=== PATIENT | male | born 1960 | race Caucasian/White ===

== ENCOUNTER 2018-09-04 13:00 | Outpatient (RCR) | payer BC ==
[2018-06-13 14:56] VITALS: BP 112/68
--- NOTE | 2018-06-13 17:13 | [facility] ONCOLOGY NOTE ---
DATE OF CONSULTATION: June 13, 2018 REFERRING PHYSICIAN LEE Huffman REASON FOR CONSULTATION Evaluation and management of microcytic anemia. HISTORY OF PRESENT ILLNESS Patient is a 57-year-old male generally in good health except for hyperlipidemia , who was having mild anemia and had a colonoscopy in May 2017 which was normal. Ferritin and iron were low normal last year. Celiac disease testing came back negative. His mom had a history of myeloproliferative disorder, and his father of pancreatic cancer. He had recent blood work which showed hemoglobin of 11.3, hematocrit 35.9, MCV was low at 78, RDW was high at 17.5, white cell count was 3.8, and the platelet count was normal at 211,000. PAST MEDICAL HISTORY Hyperlipidemia. PAST SURGICAL HISTORY 1. mole removal. 2. LASIK surgery. FAMILY HISTORY Mother had myeloproliferative disorder, on Jakafi. Father with pancreatic cancer. SOCIAL HISTORY Patient is single with no children. 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 He denies any abuse of tobacco, alcohol, or drugs. He quit alcohol eight years ago. CURRENT MEDICATIONS 1. Fish oil. 2. Multivitamins. ALLERGIES No known drug allergies. REVIEW OF SYSTEMS CONSTITUTIONAL: No appetite or weight change. No fever, chills, or sweating. No recent infection. HEENT: Ears: No tinnitus or hearing problem. Nose: No nasal discharge or epistaxis. Throat: No sore throat or mouth ulcers. Eyes: No diplopia or visual changes. RESPIRATORY: No shortness of breath. No cough, expectoration, or hemoptysis. CARDIOVASCULAR: No chest pain, orthopnea, or paroxysmal nocturnal dyspnea (PND) . No edema. No palpitations. GASTROINTESTINAL: Patient has rectal bleeding occasionally, and he had a colonoscopy in May 2017 which came back normal. GENITOURINARY: No hematuria or dysuria. MUSCULOSKELETAL: No pain in the muscles, joints, or bones. NEUROLOGICAL: No tingling or numbness in the hands or feet. No headaches or convulsions. HEMATOLOGIC/LYMPHATIC: No bleeding or easy bruising. No weakness or fatigue. No enlarged lymph nodes. SKIN: No skin rash or lumps. PSYCHIATRIC: No anxiety or depression. PHYSICAL EXAMINATION GENERAL: Looks stable. Well developed, well nourished, and in no acute distress. VITAL SIGNS: Blood pressure 112/68, pulse 59 per minute, respirations 16 per minute, temperature 96.7, pulse ox 95% on room air. HEENT: Head: Atraumatic. No sinus tenderness to palpation. Eyes: No icterus or conjunctivitis. Mouth and throat: No oral thrush or mucositis. NECK: Supple. No cervical or supraclavicular lymphadenopathy. LUNGS: Clear to auscultation and percussion bilaterally. HEART: Regular rate and rhythm. No gallops, murmurs, clicks, or rubs. ABDOMEN: Soft and lax. No tenderness. No hepatosplenomegaly. No masses. EXTREMITIES: No cyanosis, clubbing, or edema. LYMPHATICS: No peripheral lymphadenopathy. NEUROLOGICAL: Conscious, alert, and oriented times three. No focal motor or sensory deficits. PSYCHIATRIC: Mood and affect appear normal. SKIN: No skin rash, bruise, or purpuric eruption. ASSESSMENT Microcytic anemia. Could be due to iron deficiency anemia given that the patient has occasional episodes of rectal bleeding. He had a colonoscopy done May 2017 which came back negative. He was tested for celiac disease, and also the testing came back negative. I am planning to do a general workup for the anemia, so I am planning to repeat his CBC, reticulocyte count, iron studies with ferritin, B12, folate, methylmalonic acid assay, and serum protein immunoelectrophoresis. I will see the patient after that, and I will decide about further management. If the patient would prove to have iron deficiency anemia, I am planning to refer him to a scrubbing machine operator for gastrointestinal workup. I explained that to the patient, and he is agreeable with the plan of management. PLAN 1. CBC with retic count. 2. Iron studies with ferritin. 3. Vitamin B12 and folate acid levels. 4. Methylmalonic acid assay. 5. Serum protein immunoelectrophoresis. 6. Patient to return after the above for further evaluation and management. 7. Patient to contact us for any new concerns or complaints. YESSICA
[2018-06-18 16:18] VITALS: BP 114/61
[2018-06-18 16:27] LABS: PLATELET COUNT, AUTOMATED 193 K/uL (150-450)
[2018-06-27 16:39] VITALS: BP 122/68
--- NOTE | 2018-06-27 18:36 | ONCOLOGY FOLLOW UP NOTE ---
EVENT DATE: June 27, 2018 DIAGNOSIS Iron deficiency anemia. CHIEF COMPLAINT Patient is here today for followup of his iron deficiency anemia. HEMATOLOGY HISTORY Patient is a 58-year-old male generally in good health except for hyperlipidemia, who was having mild anemia and had a colonoscopy in May 2017 which was normal. Ferritin and iron were low normal last year. Celiac disease testing came back negative. His mom had a history of myeloproliferative disorder, and his father of pancreatic cancer. He had recent blood work which showed hemoglobin of 11.3, hematocrit 35.9, MCV was low at 78, RDW was high at 17.5, white cell count was 3.8, and the platelet count was normal at 211,000. CBC showed white count 4.5, hemoglobin 10.6, hematocrit 31.8, platelets 193,000, MCV 75.5. Serum iron 27, TIBC 429, iron saturation 6.3%, serum ferritin was low at 5. Vitamin B12 was 242. Methylmalonic acid was 0.12. Serum folate was more than 22. Serum protein immunoelectrophoresis was normal. HISTORY OF PRESENT ILLNESS Patient is here today for followup of his iron deficiency anemia. He is complaining of some epistaxis sometimes and fatigue. He denies any recent rectal bleeding, but he has before. PAST MEDICAL HISTORY Hyperlipidemia. PAST SURGICAL HISTORY 1. mole removal. 2. LASIK surgery. FAMILY HISTORY Mother had myeloproliferative disorder, on Jakafi. Father with pancreatic cancer. SOCIAL HISTORY Patient is single with no children. 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 He denies any abuse of tobacco, alcohol, or drugs. He quit alcohol eight years ago. CURRENT MEDICATIONS 1. Fish oil. 2. Multivitamins. ALLERGIES No known drug allergies. REVIEW OF SYSTEMS CONSTITUTIONAL: No appetite or weight change. No fever, chills, or sweating. No recent infection. HEENT: Ears: No tinnitus or hearing problem. Nose: He has epistaxis. Throat: No sore throat or mouth ulcers. Eyes: No diplopia or visual changes. RESPIRATORY: No shortness of breath. No cough, expectoration, or hemoptysis. CARDIOVASCULAR: No chest pain, orthopnea, or paroxysmal nocturnal dyspnea (PND). No edema. No palpitations. GASTROINTESTINAL: Patient has rectal bleeding occasionally, and he had a colonoscopy in May 2017 which came back normal. GENITOURINARY: No hematuria or dysuria. MUSCULOSKELETAL: No pain in the muscles, joints, or bones. NEUROLOGICAL: No tingling or numbness in the hands or feet. No headaches or convulsions. HEMATOLOGIC/LYMPHATIC: No bleeding or easy bruising. He has weakness and fatigue. No enlarged lymph nodes. SKIN: No skin rash or lumps. PSYCHIATRIC: No anxiety or depression. PHYSICAL EXAMINATION GENERAL: Looks stable. Well developed, well nourished, and in no acute distress. VITAL SIGNS: Blood pressure 122/68, pulse 60 per minute, respirations 16 per minute, temperature 97.9, pulse ox 94% on room air. HEENT: Head: Atraumatic. No sinus tenderness to palpation. Eyes: No icterus or conjunctivitis. Mouth and throat: No oral thrush or mucositis. NECK: Supple. No cervical or supraclavicular lymphadenopathy. LUNGS: Clear to auscultation and percussion bilaterally. HEART: Regular rate and rhythm. No gallops, murmurs, clicks, or rubs. ABDOMEN: Soft and lax. No tenderness. No hepatosplenomegaly. No masses. EXTREMITIES: No cyanosis, clubbing, or edema. LYMPHATICS: No peripheral lymphadenopathy. NEUROLOGICAL: Conscious, alert, and oriented times three. No focal motor or sensory deficits. PSYCHIATRIC: Mood and affect appear normal. SKIN: No skin rash, bruise, or purpuric eruption. DIAGNOSTIC DATA CBC showed white count 4.5, hemoglobin 10.6, hematocrit 31.8, platelets 193,000, MCV 75.5. Serum iron 27, TIBC 429, iron saturation 6.3%, ferritin is 5. Methylmalonic acid is 0.12. B12 is 242. Folate more than 22. Serum protein immunoelectrophoresis is normal. ASSESSMENT Microcytic anemia due to iron deficiency anemia as per his iron studies. His serum ferritin is 5, TIBC 429, iron saturation 6.3%, and serum iron is 27. His current hemoglobin is 10.6, hematocrit 31.8, and the MCV is 75.7. Platelets and white count were normal. B12, folate, methylmalonic acid, and serum protein immunoelectrophoresis all came back within the normal range. As the patient has iron deficiency anemia, I am planning to start treatment with ferrous sulfate 325 mg three times daily with meals. I am planning to refer the patient to Dr. Srinivasan for gastrointestinal workup. I will see him again in two months with CBC and iron studies with ferritin. I will consider intravenous iron supplement if he will not respond to oral iron, or he is intolerant to the oral iron supplement. I explained that to the patient. He is agreeable with the plan of management. PLAN 1. Ferrous sulfate 325 mg t.i.d. with meals. 2. Referral to Dr. Srinivasan for GI workup. 3. Patient to return in two months with CBC and iron studies with ferritin. 4. Patient to contact us for any new concerns or complaints. YESSICA
[2018-08-26 15:40] VITALS: BP 112/62
[2018-08-26 16:10] LABS: PLATELET COUNT, AUTOMATED 170 K/uL (150-450)
[~2018-09-04 13:00] MED LIST: AZIT1PAC21 PO; AZIT500T47 PO; D-ME118S34 PO; ESC10 PO; FAM20 PO; IBUP-1618 PO; IBUPROFEN; MULT-859 PO; MYLL PO; NALT50TA PO; THIA100T55 PO
[2018-09-04 13:09] VITALS: BP 111/67
--- NOTE | 2018-09-05 15:29 | ONCOLOGY FOLLOW UP NOTE ---
EVENT DATE: September 04, 2018 DIAGNOSIS Iron deficiency anemia. CHIEF COMPLAINT Patient is here today for followup of his iron deficiency anemia. HEMATOLOGY HISTORY Patient is a 58-year-old male generally in good health except for hyperlipidemia, who was having mild anemia and had a colonoscopy in May 2017 which was normal. Ferritin and iron were low normal last year. Celiac disease testing came back negative. His mom had a history of myeloproliferative disorder, and his father of pancreatic cancer. He had recent blood work which showed hemoglobin of 11.3, hematocrit 35.9, MCV was low at 78, RDW was high at 17.5, white cell count was 3.8, and the platelet count was normal at 211,000. CBC showed white count 4.5, hemoglobin 10.6, hematocrit 31.8, platelets 193,000, MCV 75.5. Serum iron 27, TIBC 429, iron saturation 6.3%, serum ferritin was low at 5. Vitamin B12 was 242. Methylmalonic acid was 0.12. Serum folate was more than 22. Serum protein immunoelectrophoresis was normal. HISTORY OF PRESENT ILLNESS Patient is here today for followup of his iron deficiency anemia. He is really doing very well currently, and he is totally asymptomatic this visit. PAST MEDICAL HISTORY Hyperlipidemia. PAST SURGICAL HISTORY 1. mole removal. 2. LASIK surgery. FAMILY HISTORY Mother had myeloproliferative disorder, on Jakafi. Father with pancreatic cancer. SOCIAL HISTORY Patient is single with no children. 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 He denies any abuse of tobacco, alcohol, or drugs. He quit alcohol eight years ago. CURRENT MEDICATIONS 1. Fish oil. 2. Multivitamins. 3. Ferrous sulfate 325 mg three times daily with meals. ALLERGIES No known drug allergies. REVIEW OF SYSTEMS CONSTITUTIONAL: No appetite or weight change. No fever, chills, or sweating. No recent infection. HEENT: Ears: No tinnitus or hearing problem. Nose: He has epistaxis. Throat: No sore throat or mouth ulcers. Eyes: No diplopia or visual changes. RESPIRATORY: No shortness of breath. No cough, expectoration, or hemoptysis. CARDIOVASCULAR: No chest pain, orthopnea, or paroxysmal nocturnal dyspnea (PND). No edema. No palpitations. GASTROINTESTINAL: Patient has rectal bleeding occasionally, and he had a colonoscopy in May 2017 which came back normal. GENITOURINARY: No hematuria or dysuria. MUSCULOSKELETAL: No pain in the muscles, joints, or bones. NEUROLOGICAL: No tingling or numbness in the hands or feet. No headaches or convulsions. HEMATOLOGIC/LYMPHATIC: No bleeding or easy bruising. He has weakness and fatigue. No enlarged lymph nodes. SKIN: No skin rash or lumps. PSYCHIATRIC: No anxiety or depression. PHYSICAL EXAMINATION GENERAL: Looks stable. Well developed, well nourished, and in no acute distress. VITAL SIGNS: Blood pressure 111/67, pulse 62 per minute, respirations 16 per minute, temperature 97, pulse ox 93% on room air. HEENT: Head: Atraumatic. No sinus tenderness to palpation. Eyes: No icterus or conjunctivitis. Mouth and throat: No oral thrush or mucositis. NECK: Supple. No cervical or supraclavicular lymphadenopathy. LUNGS: Clear to auscultation and percussion bilaterally. HEART: Regular rate and rhythm. No gallops, murmurs, clicks, or rubs. ABDOMEN: Soft and lax. No tenderness. No hepatosplenomegaly. No masses. EXTREMITIES: No cyanosis, clubbing, or edema. LYMPHATICS: No peripheral lymphadenopathy. NEUROLOGICAL: Conscious, alert, and oriented times three. No focal motor or sensory deficits. PSYCHIATRIC: Mood and affect appear normal. SKIN: No skin rash, bruise, or purpuric eruption. DIAGNOSTIC DATA CBC showed white count 4000, hemoglobin 13.8, hematocrit 40.3, platelets 170,000. Serum iron 52, TIBC 326, iron saturation 16%, ferritin 25. ASSESSMENT Iron deficiency anemia. His initial serum ferritin was 5, TIBC 429, iron saturation 6.3%, and serum iron was 27. His initial hemoglobin was 10.6 with MCV 75.7. Patient started treatment with supplementation with ferrous sulfate 325 mg three times daily. His current hemoglobin is 13.8, up from 10.6, and his serum ferritin is 25, up from 5. I am planning to continue iron supplementation for another three months to replenish his stores, and I will see him in three months with CBC and iron studies with ferritin at that time. I explained that to the patient, and the patient is agreeable with the plan of management. He is happy with the improvement of his iron and hemoglobin. PLAN 1. Continue ferrous sulfate 325 mg t.i.d. with meals. 2. Patient to return in three months with CBC and iron studies with ferritin. 3. Patient to contact us for any new concerns or complaints. BEVERLYD
== END 2018-09-10 ==
LOC: ONC 13:00
PROVIDERS: ATTEND Internal Medicine Hematology
DX: D50.9 Iron deficiency anemia, unspecified (principal); E78.5 Hyperlipidemia, unspecified; R53.1 Weakness; R53.83 Other fatigue
CPT/HCPCS: 36415; 82607; 82728; 82746; 83540; 83550; 83921; 84165; 85025; 85027; 85045; 86334; 99202; 99212

== ENCOUNTER 2018-12-05 15:30 | Outpatient (RCR) | payer BC ==
[2018-11-25 15:52] VITALS: BP 120/72
[2018-11-25 15:57] LABS: PLATELET COUNT, AUTOMATED 193 K/uL (150-450)
[~2018-12-05 15:30] MED LIST changes: +ESCI20TA38 PO
[2018-12-05] MEDS ORDERED: ZOLP-1 PO (15:48)
[2018-12-05 15:49] VITALS: BP 105/70
--- NOTE | 2018-12-05 21:17 | [facility] ONCOLOGY NOTE ---
EVENT DATE: December 05, 2018 DIAGNOSIS Iron deficiency anemia. CHIEF COMPLAINT Patient is here today for followup of his iron deficiency anemia. HEMATOLOGY HISTORY Patient is a 58-year-old male generally in good health except for hyperlipidemia, who was having mild anemia and had a colonoscopy in May 2017 which was normal. Ferritin and iron were low normal last year. Celiac disease testing came back negative. His mom had a history of myeloproliferative disorder, and his father of pancreatic cancer. He had recent blood work which showed hemoglobin of 11.3, hematocrit 35.9, MCV was low at 78, RDW was high at 17.5, white cell count was 3.8, and the platelet count was normal at 211,000. CBC showed white count 4.5, hemoglobin 10.6, hematocrit 31.8, platelets 193,000, MCV 75.5. Serum iron 27, TIBC 429, iron saturation 6.3%, serum ferritin was low at 5. Vitamin B12 was 242. Methylmalonic acid was 0.12. Serum folate was more than 22. Serum protein immunoelectrophoresis was normal. HISTORY OF PRESENT ILLNESS Patient is here today for followup of his iron deficiency anemia. He is doing fine currently and denies any symptoms. PAST MEDICAL HISTORY Hyperlipidemia. PAST SURGICAL HISTORY 1. mole removal. 2. LASIK surgery. FAMILY HISTORY Mother had myeloproliferative disorder, on Jakafi. Father with pancreatic cancer. SOCIAL HISTORY Patient is single with no children. 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 He denies any abuse of tobacco, alcohol, or drugs. He quit alcohol eight years ago. CURRENT MEDICATIONS 1. Fish oil. 2. Multivitamins. ALLERGIES No known drug allergies. REVIEW OF SYSTEMS CONSTITUTIONAL: No appetite or weight change. No fever, chills, or sweating. No recent infection. HEENT: Ears: No tinnitus or hearing problem. Nose: No nasal discharge or epistaxis. Throat: No sore throat or mouth ulcers. Eyes: No diplopia or visual changes. RESPIRATORY: No shortness of breath. No cough, expectoration, or hemoptysis. CARDIOVASCULAR: No chest pain, orthopnea, or paroxysmal nocturnal dyspnea (PND). No edema. No palpitations. GASTROINTESTINAL: No nausea or vomiting. No diarrhea or constipation. No change in bowel movements. No heartburn or swallowing difficulties. No abdominal pain. No jaundice. No hematemesis, melena, or rectal bleeding. GENITOURINARY: No hematuria or dysuria. MUSCULOSKELETAL: No pain in the muscles, joints, or bones. NEUROLOGICAL: No tingling or numbness in the hands or feet. No headaches or convulsions. HEMATOLOGIC/LYMPHATIC: No bleeding or easy bruising. No weakness or fatigue. No enlarged lymph nodes. SKIN: No skin rash or lumps. PSYCHIATRIC: No anxiety or depression. PHYSICAL EXAMINATION GENERAL: Looks stable. Well developed, well nourished, and in no acute distress. VITAL SIGNS: Blood pressure 101/53, pulse 55 per minute, respirations 16 per minute, temperature 96.8, pulse ox 94% on room air. HEENT: Head: Atraumatic. No sinus tenderness to palpation. Eyes: No icterus or conjunctivitis. Mouth and throat: No oral thrush or mucositis. NECK: Supple. No cervical or supraclavicular lymphadenopathy. LUNGS: Clear to auscultation and percussion bilaterally. HEART: Regular rate and rhythm. No gallops, murmurs, clicks, or rubs. ABDOMEN: Soft and lax. No tenderness. No hepatosplenomegaly. No masses. EXTREMITIES: No cyanosis, clubbing, or edema. LYMPHATICS: No peripheral lymphadenopathy. NEUROLOGICAL: Conscious, alert, and oriented times three. No focal motor or sensory deficits. PSYCHIATRIC: Mood and affect appear normal. SKIN: No skin rash, bruise, or purpuric eruption. DIAGNOSTIC DATA CBC showed white count 5.4, hemoglobin 13.9, hematocrit 39.5, and platelet count 193,000. Serum iron 83, TIBC 296, iron saturation 28%, and ferritin 28. ASSESSMENT Microcytic anemia due to iron deficiency anemia. His initial ferritin was 5, TIBC was 429, iron saturation 6.3%, and serum iron was 27. Patient is currently on iron supplement since the May. His current iron studies showed the serum iron 83, TIBC 296, iron saturation 28%, and ferritin 28. I advised the patient to stop iron after he would finish his current pills. I would like to see him in three months from now with CBC and iron studies with ferritin. If the patient develops iron deficiency again, then I will refer him to a automotive professional for gastrointestinal workup again. I explained that to the patient, and he is agreeable with the plan of management. PLAN 1. Ferrous sulfate 325 mg t.i.d. with meals until he would finish his current supply, and then he will stop ferrous sulfate. 2. Patient to return in three months with CBC and iron studies with ferritin. 3. Patient to contact us for any new concern or complaints. YESSICA
[2019-02-24] MEDS ORDERED: HYDR-385 PO (15:49)
[2019-02-24] MEDS ORDERED: AMOX500T10 PO (15:49)
[2019-02-24] MEDS ORDERED: ALPR-429 PO (15:49)
== END 2019-02-22 ==
LOC: ONC 15:30
PROVIDERS: ATTEND Internal Medicine Hematology
DX: D50.9 Iron deficiency anemia, unspecified (principal); E78.5 Hyperlipidemia, unspecified; R53.1 Weakness; R53.83 Other fatigue
CPT/HCPCS: 36415; 82728; 83540; 83550; 85025; 99212

== ENCOUNTER 2019-02-27 15:30 | Outpatient (RCR) | payer BC ==
[2019-02-24 15:34] VITALS: BP 119/79
[2019-02-24 15:51] LABS: PLATELET COUNT, AUTOMATED 224 K/uL (150-450)
[~2019-02-27 15:30] MED LIST changes: +ALPR-429 PO; +AMOX500T10 PO; +HYDR-385 PO; +ZOLP-1 PO
[2019-02-27 15:38] VITALS: BP 119/69
--- NOTE | 2019-02-28 07:31 | [facility] ONCOLOGY NOTE ---
EVENT DATE: February 27, 2019 DIAGNOSIS Iron deficiency anemia. CHIEF COMPLAINT Patient is here today for followup of his iron deficiency anemia. HEMATOLOGY HISTORY Patient is a 58-year-old male generally in good health except for hyperlipidemia, who was having mild anemia and had a colonoscopy in May 2017 which was normal. Ferritin and iron were low normal last year. Celiac disease testing came back negative. His mom had a history of myeloproliferative disorder, and his father of pancreatic cancer. He had recent blood work which showed hemoglobin of 11.3, hematocrit 35.9, MCV was low at 78, RDW was high at 17.5, white cell count was 3.8, and the platelet count was normal at 211,000. CBC showed white count 4.5, hemoglobin 10.6, hematocrit 31.8, platelets 193,000, MCV 75.5. Serum iron 27, TIBC 429, iron saturation 6.3%, serum ferritin was low at 5. Vitamin B12 was 242. Methylmalonic acid was 0.12. Serum folate was more than 22. Serum protein immunoelectrophoresis was normal. HISTORY OF PRESENT ILLNESS Patient is here today for followup of his iron deficiency anemia. He is doing fine currently and he is totally asymptomatic. He finished his iron supplement so he did not take any iron for the last 2 to 3 months. PAST MEDICAL HISTORY Hyperlipidemia. PAST SURGICAL HISTORY 1. mole removal. 2. LASIK surgery. FAMILY HISTORY Mother had myeloproliferative disorder, on Jakafi. Father with pancreatic cancer. SOCIAL HISTORY Patient is single with no children. 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 He denies any abuse of tobacco, alcohol, or drugs. He quit alcohol eight years ago. CURRENT MEDICATIONS 1. Fish oil. 2. Multivitamins. ALLERGIES No known drug allergies. REVIEW OF SYSTEMS CONSTITUTIONAL: No appetite or weight change. No fever, chills, or sweating. No recent infection. HEENT: Ears: No tinnitus or hearing problem. Nose: No nasal discharge or epistaxis. Throat: No sore throat or mouth ulcers. Eyes: No diplopia or visual changes. RESPIRATORY: No shortness of breath. No cough, expectoration, or hemoptysis. CARDIOVASCULAR: No chest pain, orthopnea, or paroxysmal nocturnal dyspnea (PND). No edema. No palpitations. GASTROINTESTINAL: No nausea or vomiting. No diarrhea or constipation. No change in bowel movements. No heartburn or swallowing difficulties. No abdominal pain. No jaundice. No hematemesis, melena, or rectal bleeding. GENITOURINARY: No hematuria or dysuria. MUSCULOSKELETAL: No pain in the muscles, joints, or bones. NEUROLOGICAL: No tingling or numbness in the hands or feet. No headaches or convulsions. HEMATOLOGIC/LYMPHATIC: No bleeding or easy bruising. No weakness or fatigue. No enlarged lymph nodes. SKIN: No skin rash or lumps. PSYCHIATRIC: No anxiety or depression. PHYSICAL EXAMINATION GENERAL: Looks stable. Well developed, well nourished, and in no acute distress. VITAL SIGNS: Blood pressure 119/69, pulse 59 per minute, respirations 16 per minute, temperature 97, pulse ox 95% on room air. HEENT: Head: Atraumatic. No sinus tenderness to palpation. Eyes: No icterus or conjunctivitis. Mouth and throat: No oral thrush or mucositis. NECK: Supple. No cervical or supraclavicular lymphadenopathy. LUNGS: Clear to auscultation and percussion bilaterally. HEART: Regular rate and rhythm. No gallops, murmurs, clicks, or rubs. ABDOMEN: Soft and lax. No tenderness. No hepatosplenomegaly. No masses. EXTREMITIES: No cyanosis, clubbing, or edema. LYMPHATICS: No peripheral lymphadenopathy. NEUROLOGICAL: Conscious, alert, and oriented times three. No focal motor or sensory deficits. PSYCHIATRIC: Mood and affect appear normal. SKIN: No skin rash, bruise, or purpuric eruption. DIAGNOSTIC DATA CBC showed white count 5.9, hemoglobin 14.3, hematocrit 41.4, and platelet count 224,000. Serum iron 63, TIBC 305, iron saturation 20.7%, and ferritin 32, which is up from 28. ASSESSMENT Iron deficiency anemia. Initial ferritin level was 5. TIBC was 429. Saturation of the iron was 6.3% and serum iron was 27. Patient received six months of iron supplementation with normalization of his iron studies. For the last two to three months he has not received any iron supplement and his ferritin actually increased from 28 to 32 and other iron studies were within the normal range and hemoglobin is good at 14.3. I am planning to continue followup. I will see him again in six months with CBC, iron studies with ferritin and the patient was advised to report to us if he becomes fatigued again or not in the future. PLAN 1. Continue followup. 2. Patient to return in six months with CBC and iron studies with ferritin. 3. Patient to contact us for any new concern or complaints. YESSICA
== END 2019-03-30 14:45 | disposition home or self-care (01) ==
LOC: ONC 15:30
PROVIDERS: ATTEND Internal Medicine Hematology
DX: D50.9 Iron deficiency anemia, unspecified (principal); E78.5 Hyperlipidemia, unspecified
CPT/HCPCS: 36415; 82728; 83540; 83550; 85025; 99212

== ENCOUNTER 2019-04-16 21:48 | Emergency (ER) | payer BC ==
--- NOTE | 2019-04-16 21:59 | ER Report ---
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 His only significant history was iron deficiency anemia and hyperlipidemia. Patient now notes 1 month of severe fatigue, dyspnea on exertion. His renal pulse ox is 84%. He was seen by primary care today and advised to come to the hospital for chest x-ray. Patient notes no infectious symptoms such as rhinitis, sore throat or coughing. He denies leg swelling or calf pain. REVIEW OF SYSTEMS: Respiratory: As above Cardiovascular: No chest pain, no palpitations. Gastrointestinal: No vomiting, no abdominal pain. Musculoskeletal: No back pain. Allergies: Coded Allergies: No Known Drug Allergies (Verified , 04/16/19) Home Meds Active Scripts Albuterol Sulfate (PROVENTIL HFA) 6.7 Gm Inh, 2 PUFF INH Q4-6H PRN for difficulty breathing, #1 INH Prov:ADRIAN CRUZ DO 04/16/19 Prednisone (PREDNISONE) 20 Mg Tablet, 20 MG PO QDAY for reduce lung inflammation, #9 2 by mouth daily for 3 days then 1 by mouth daily for 3 days Prov:ADRIAN CRUZ DO 04/16/19 Reported Medications Duloxetine HCl (Duloxetine HCl) 60 Mg Capsule. 04/16/19 Discontinued Reported Medications Hydrocodone Bit/Acetaminophen (HYDROCODON-ACETAMINOPHEN 5-325) 1 Each Tablet, 1 EACH PO Q6H, TAB 02/24/19 Alprazolam (XANAX) 0.5 Mg Tablet, 0.5 TAB PO QD PRN, TAB 02/24/19 Zolpidem Tartrate (AMBIEN) 5 Mg Tablet, 1 TAB PO QHS, TAB 12/05/18 Escitalopram Oxalate (LEXAPRO) 20 Mg Tablet, 10 MG PO QDAY, TAB 11/25/18 Past Medical/Surgical History PAST MEDICAL HISTORY Hyperlipidemia. PAST SURGICAL HISTORY 1. mole removal. 2. LASIK surgery. FAMILY HISTORY Mother had myeloproliferative disorder, on Jakafi. Father with pancreatic cancer. SOCIAL HISTORY Patient is single with no children. 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 He denies any abuse of tobacco, alcohol, or drugs. He quit alcohol eight years ago. Reviewed Nurses Notes: Yes Old Medical Records Reviewed: Yes Hx Smoking: No Hx Alcohol Use: Yes Constitutional Vital Sign - Last 24 Hours 04/16/19 04/16/19 04/16/19 04/16/19 21:48 21:57 21:58 22:00 Temp 96.6 Pulse ??? 92 Resp 16 B/P (MAP) 137/82 (100) 137/82 144/86 (105) Pulse Ox 84 O2 Delivery Room Air 04/16/19 04/16/19 04/16/19 04/16/19 22:06 22:18 22:30 23:05 Pulse 86 B/P (MAP) 128/79 (95) 95/73 (80) Pulse Ox 94 O2 Flow Rate 2.0 04/16/19 04/16/19 04/16/19 04/16/19 23:18 23:30 23:35 23:40 Pulse 65 73 78 B/P (MAP) 123/78 (93) Pulse Ox 95 95 94 04/17/19 04/17/19 04/17/19 04/17/19 00:00 00:10 00:30 00:40 Pulse 81 68 B/P (MAP) 137/70 (92) 127/78 (94) Pulse Ox 94 95 Physical Exam General Appearance: The patient is alert, has no immediate need for airway protection and no current signs of toxicity. Slightly pale appearing, vital signs stable, pulse ox 84% on room air, no air hunger HEENT: Pupils equal and round no injection. TMs normal, oropharynx without redness or exudate Respiratory: Chest is non tender, lungs are clear to auscultation. No wheezing or rails Cardiac: regular rate and rhythm Gastrointestinal: Abdomen is soft and non tender, no masses, bowel sounds normal. Musculoskeletal: Neck: Neck is supple and non tender. Extremities have full range of motion and are non tender. No edema, no calf tenderness Skin: No rashes or lesions. DIFFERENTIAL DIAGNOSIS: After history and physical exam differential diagnosis was considered for shortness of breath including but not limited to pulmonary infectious process, COPD, asthma, pulmonary embolus and congestive heart f ailure. Medical Decision Making Data Points Result Diagram: 04/16/19221004/16/192210 Laboratory Hematology Test 04/16/19 22:11 Red Blood Count 4.06 M/uL (4.00-5.60) Mean Corpuscular Volume 96.2 fL (80.0-96.0) Mean Corpuscular Hemoglobin 33.6 pg (26.0-33.0) Mean Corpuscular Hemoglobin Concent 34.9 g/dL (32.0-36.0) Red Cell Distribution Width 14.0 % (11.5-14.5) Mean Platelet Volume 5.9 fL (7.2-11.1) Neutrophils (%) (Auto) 60.4 % (39.4-72.5) Lymphocytes (%) (Auto) 27.7 % (17.6-49.6) Monocytes (%) (Auto) 9.3 % (4.1-12.4) Eosinophils (%) (Auto) 1.8 % (0.4-6.7) Basophils (%) (Auto) 0.8 % (0.3-1.4) Nucleated RBC Relative Count (auto) 0.1 /100WBC Neutrophils # (Auto) 2.2 K/uL (2.0-7.4) Lymphocytes # (Auto) 1.0 K/uL (1.3-3.6) Monocytes # (Auto) 0.3 K/uL (0.3-1.0) Eosinophils # (Auto) 0.1 K/uL (0.0-0.5) Basophils # (Auto) 0.0 K/uL (0.0-0.1) Nucleated RBC Absolute Count (auto) 0.00 K/uL D-Dimer Quantitative (PE/DVT) 1.32 ug/ml (0-0.50) Sodium Level 142 mmol/L (137-145) Potassium Level 3.4 mmol/L (3.5-5.0) Chloride Level 104 mmol/L (98-107) Carbon Dioxide Level 24 mmol/L (22-30) Blood Urea Nitrogen 16 mg/dl (9-21) Creatinine 0.60 mg/dl (0.66-1.25) Glomerular Filtration Rate Calc > 60.0 Random Glucose 219 mg/dl (75-110) Calcium Level 8.2 mg/dl (8.4-10.2) Total Bilirubin 1.0 mg/dl (0.2-1.3) Aspartate Amino Transf (AST/SGOT) 69 U/L (0-35) Alanine Aminotransferase (ALT/SGPT) 53 U/L (0-56) Alkaline Phosphatase 66 U/L (0-126) Troponin I < 0.012 ng/ml B-Type Natriuretic Peptide 7 pg/ml (0-100) Total Protein 7.2 g/dl (6.3-8.2) Albumin 3.9 g/dl (3.5-5.0) Chemistry Test 04/16/19 22:11 White Blood Count 3.6 k/uL (4.5-11.0) Red Blood Count 4.06 M/uL (4.00-5.60) Hemoglobin 13.6 g/dL (14.0-18.0) Hematocrit 39.1 % (42.0-52.0) Mean Corpuscular Volume 96.2 fL (80.0-96.0) Mean Corpuscular Hemoglobin 33.6 pg (26.0-33.0) Mean Corpuscular Hemoglobin Concent 34.9 g/dL (32.0-36.0) Red Cell Distribution Width 14.0 % (11.5-14.5) Platelet Count 180 K/uL (150-450) Mean Platelet Volume 5.9 fL (7.2-11.1) Neutrophils (%) (Auto) 60.4 % (39.4-72.5) Lymphocytes (%) (Auto) 27.7 % (17.6-49.6) Monocytes (%) (Auto) 9.3 % (4.1-12.4) Eosinophils (%) (Auto) 1.8 % (0.4-6.7) Basophils (%) (Auto) 0.8 % (0.3-1.4) Nucleated RBC Relative Count (auto) 0.1 /100WBC Neutrophils # (Auto) 2.2 K/uL (2.0-7.4) Lymphocytes # (Auto) 1.0 K/uL (1.3-3.6) Monocytes # (Auto) 0.3 K/uL (0.3-1.0) Eosinophils # (Auto) 0.1 K/uL (0.0-0.5) Basophils # (Auto) 0.0 K/uL (0.0-0.1) Nucleated RBC Absolute Count (auto) 0.00 K/uL D-Dimer Quantitative (PE/DVT) 1.32 ug/ml (0-0.50) Glomerular Filtration Rate Calc > 60.0 Calcium Level 8.2 mg/dl (8.4-10.2) Total Bilirubin 1.0 mg/dl (0.2-1.3) Aspartate Amino Transf (AST/SGOT) 69 U/L (0-35) Alanine Aminotransferase (ALT/SGPT) 53 U/L (0-56) Alkaline Phosphatase 66 U/L (0-126) Troponin I < 0.012 ng/ml B-Type Natriuretic Peptide 7 pg/ml (0-100) Total Protein 7.2 g/dl (6.3-8.2) Albumin 3.9 g/dl (3.5-5.0) Coagulation Test 04/16/19 22:11 D-Dimer Quantitative (PE/DVT) 1.32 ug/ml EKG/Imaging Imaging Results: CT scan of the CTA pulmonary angiogram was obtained. The results of the study are CT CTA CHEST W & W/O CON HISTORY: Hypoxia 84% RA elevted d-dimer TECHNIQUE: CTA chest with intravenous contrast attention to pulmonary arteries. Sagittal, coronal and slab 3D MIP coronal reconstructed images were also created for further evaluation and interpretation. One of the following dose optimization techniques was utilized in the performance of this exam: Automated exposure control; adjustment of the mA and/or kV according to the patient's size; or use of an iterative reconstruction technique. Specific details can be referenced in the facility's radiology CT exam operational policy. CONTRAST: 75 mL Isovue-370. COMPARISON: None. FINDINGS: Heart/vessels: Satisfactory opacification of the pulmonary arteries without visualized pulmonary embolus. Prominence of the main pulmonary artery measuring up to 3.8 cm which is nonspecific however can be seen in setting of pulmonary arterial hypertension. Minimal calcification within the LAD. Otherwise negative. Mediastinum: Negative. Lymph nodes: Negative. Lungs/pleura: Background of mild centrilobular emphysematous change. Focal cluster of nodular subsolid opacities in the right upper lobe, the largest of which measures approximately 11 x 6 mm (image 128 of series 7). Mild heterogeneous groundglass opacities within the lung bases which are most compatible with atelectasis. Solid 2 mm nodule within the lingula (image 170 of series 7). Visualized upper abdomen: Suggestion of hepatic steatosis. Bones/soft tissues: Negative. IMPRESSION: 1. Negative for pulmonary embolus. 2. Focal cluster of subsolid nodularity within the right upper lobe favored infectious/inflammatory in etiology. 3 month follow-up CT chest is recommended to ensure stability. 3. Incidental note of a 2 mm solid nodule within the lingula. Recommend attention on follow-up. 4. Additional incidental/chronic findings, as above. The study was read by the radiologist. I viewed the images myself on the PACS system. ED Course/Re-evaluation Clinical Indication for ER IV: IV Access ED Course Patient was admitted to an examination room. H&P was done. The differential diagnoses was considered. Patient with gross hypoxemia, 84% on room air. Patient states she's been short of breath for over one month. He's not been able to exercise. He reports no recent infectious symptoms. Patient was sent in by primary care for evaluation with a chest x-ray. Patient's diagnostic bina dies are unremarkable. Except his d-dimer returns grossly elevated. A CTA pulmonary angiogram of his chest is performed showing fairly advanced emphysematous changes. There are some nonspecific primary nodules that need further evaluation. Patient be discharged on home O2, prednisone taper and a lbuterol inhaler. He is advised to follow-up with primary care in pulmonology. He is given information for pulmonologically clinic. Decision to Disposition Date: Apr 16, 2019 Decision to Disposition Time: 23:50 Depart Departure Latest Vital Signs Vital Signs Date Time Temp Pulse Resp B/P (MAP) Pulse Ox O2 Delivery O2 Flow Rate FiO2 04/17/19 00:40 68 95 04/17/19 00:30 127/78 (94) 04/16/19 22:06 2.0 04/16/19 21:58 96.6 16 Room Air Impression: Primary Impression: Hypoxia Additional Impression: COPD (chronic obstructive pulmonary disease) Condition: Improved Disposition: HOME OR SELF-CARE Referrals: [facility] (PCP) New Scripts Albuterol Sulfate (PROVENTIL HFA) 6.7 Gm Inh 2 PUFF INH Q4-6H PRN for difficulty breathing, #1 INH Prov: ADRIAN CRUZ DO 04/16/19 Prednisone (PREDNISONE) 20 Mg Tablet 20 MG PO QDAY for reduce lung inflammation, #9 2 by mouth daily for 3 days then 1 by mouth daily for 3 days Prov: ADRIAN CRUZ DO 04/16/19 Patient Instructions: COPD (Chronic Obstructive Pulmonary Disease) (ED) Additional Instructions: Take medications as prescribed Wear oxygen as needed Follow-up with sports book server, Dr. Briscoe or Dr. Martinez at their next available clinic Problem Qualifiers Additional Impression: COPD (chronic obstructive pulmonary disease) COPD type: unspecified COPD Qualified Codes: J44.9 - Chronic obstructive pulmonary disease, unspecified ADRIAN CRUZ DO Apr 16, 2019 21:59
[2019-04-16] MEDS ORDERED: ALBUTEROL/IPRATROPIUM 3 ML NEB NEB ONE (22:05)
[2019-04-16] MEDS ORDERED: DULO60CA7 (22:11)
[2019-04-16 22:23] LABS: PLATELET COUNT, AUTOMATED 180 K/uL (150-450)
[2019-04-16] MEDS ORDERED: IOPAMIDOL 76% 100 ML INFUS BTL 100 ML ONE (22:51)
[2019-04-16] MEDS ORDERED: NS(*) 0.9% 50 ML BAG 50 ML ONE (22:51)
--- NOTE | 2019-04-16 23:28 | RADIOLOGY IMAGING REPORT ---
FACILITY: [facility] - [place] PATIENT NAME: Jairo Jarrett : 1960 MR: [id number] V: [id number] EXAM DATE: ORDERING PHYSICIAN: ADRIAN CRUZ TECHNOLOGIST: Location: [facility] - [place] Patient: Jairo Jarrett : 1960 Visit/Account:[id number] Date of Sevice: 04/16/2019 CT CTA CHEST W & W/O CON HISTORY: Hypoxia 84% RA elevted d-dimer TECHNIQUE: CTA chest with intravenous contrast attention to pulmonary arteries. Sagittal, coronal a nd slab 3D MIP coronal reconstructed images were also created for further evaluation and interpretati on. One of the following dose optimization techniques was utilized in the performance of this exam: Autom ated exposure control; adjustment of the mA and/or kV according to the patient's size; or use of an i terative reconstruction technique. Specific details can be referenced in the facility's radiology CT exam operational policy. CONTRAST: 75 mL Isovue-370. COMPARISON: None. FINDINGS: Heart/vessels: Satisfactory opacification of the pulmonary arteries without visualized pulmonary emb olus. Prominence of the main pulmonary artery measuring up to 3.8 cm which is nonspecific however can be seen in setting of pulmonary arterial hypertension. Minimal calcification within the LAD. Otherwi se negative. Mediastinum: Negative. Lymph nodes: Negative. Lungs/pleura: Background of mild centrilobular emphysematous change. Focal cluster of nodular subsol id opacities in the right upper lobe, the largest of which measures approximately 11 x 6 mm (image 12 8 of series 7). Mild heterogeneous groundglass opacities within the lung bases which are most compati ble with atelectasis. Solid 2 mm nodule within the lingula (image 170 of series 7). Visualized upper abdomen: Suggestion of hepatic steatosis. Bones/soft tissues: Negative. IMPRESSION: 1. Negative for pulmonary embolus. 2. Focal cluster of subsolid nodularity within the right upper lobe favored infectious/inflammatory i n etiology. 3 month follow-up CT chest is recommended to ensure stability. 3. Incidental note of a 2 mm solid nodule within the lingula. Recommend attention on follow-up. 4. Additional incidental/chronic findings, as above. Report Dictated By: Jay Garcia MD at 04/16/2019 11:16 PM Report E-Signed By: Jay Garcia MD at 04/16/2019 11:23 PM WSN:[id number]
--- NOTE | 2019-04-16 23:46 | EKG ---
FACILITY: [facility] - [place] PATIENT NAME: JAKE MANTILLA : [id number] MR: [id number] V: [id number] EXAM DATE: ORDERING PHYSICIAN: ADRIAN CRUZ TECHNOLOGIST: BETH Diaz Reason : dyspnea, Pox 84% RA Blood Pressure : / mmHG Vent. Rate : 084 BPM Atrial Rate : 084 BPM P-R Int : 166 ms QRS Dur : 088 ms QT Int : 394 ms P-R-T Axes : 046 -09 -05 degrees QTc Int : 465 ms Sinus rhythm Borderline left axis T wave abnormality, consider anterior ischemia Prolonged QT Abnormal ECG No previous ECGs available Confirmed by FLORINDA MARTINEZ ([id number]) on 04/17/2019 6:50:31 AM Referred By: Confirmed By:FLORINDA MARTINEZ
[2019-04-16] MEDS ORDERED: ALB6.7R INH (23:56)
[2019-04-16] MEDS ORDERED: PRED20TA6 PO (23:56)
[2019-04-17 00:30] VITALS: BP 127/78
[2019-04-17] MEDS ORDERED: predniSONE 20 MG TAB PO ONE (01:00)
[2019-04-17] MEDS ORDERED: ALBUTEROL 8 GM INHALER INH ONE (01:00)
== END 2019-04-17 01:15 | disposition home or self-care (01) ==
LOC: ER 22:27
DX: J44.9 Chronic obstructive pulmonary disease, unspecified (principal); R09.02 Hypoxemia
CPT/HCPCS: 71275; 83880; 84484; 85025; 85379; 93005; 99284; J7050; J7512; Q9967; 82040; 82247; 82310; 82374; 82435; 82565; 82947; 84075; 84132; 84155; 84295; 84450; 84460; 84520

== ENCOUNTER 2019-04-22 11:45 | Emergency (ER) | payer BC ==
[~2019-04-22 11:45] MED LIST changes: +ALB6.7R INH; +DULO60CA7; +PRED20TA6 PO
--- NOTE | 2019-04-22 11:49 | ER Report ---
History and Physical Time Seen By MD: 11:47 HPI/ROS CHIEF COMPLAINT: Alcohol withdrawal HISTORY OF PRESENT ILLNESS: This is a 58-year-old male who presents to the emergency department from the [facility] in a critical access hospital clinic for alcohol withdrawal and detox. Patient states he was sober for about 8 years then in July when he broke up with his significant other he began drinking drink for about a month, sobered up for about a month and then began drinking heavily again, he states he drinks vodka typically 7-8 drinks a day, his last drink was about 2 hours prior to arrival. He denies any illicit drug use. He is wanting an admission to the behavioral health unit to help with alcohol withdrawal. He is not suicidal or homicidal, no hallucinations, not tremulous however he does have epigastric and generalized abdominal discomfort. He's also had diarrhea. Intermittent nausea with some vomiting. No fevers however he has had chills. Denies chest pain or shortness of breath. REVIEW OF SYSTEMS: Constitutional: As above. Eyes: No discharge. ENT: No sore throat. Cardiovascular: No chest pain, no palpitations. Respiratory: No cough, no shortness of breath. Gastrointestinal: As above. Genitourinary: No hematuria. Musculoskeletal: No back pain. Skin: No rashes. Neurological: No headache. Psychological: As above. Allergies: Coded Allergies: No Known Drug Allergies (Verified , 04/16/19) Home Meds Active Scripts Albuterol Sulfate (PROVENTIL HFA) 6.7 Gm Inh, 2 PUFF INH Q4-6H PRN for difficult y breathing, #1 INH Prov:ADRIAN CRUZ DO 04/16/19 Prednisone (PREDNISONE) 20 Mg Tablet, 20 MG PO QDAY for reduce lung inflammation, #9 2 by mouth daily for 3 days then 1 by mouth daily for 3 days Prov:ADRIAN CRUZ DO 04/16/19 Reported Medications Naltrexone Hcl (NALTREXONE HCL) 50 Mg Tablet, 50 MG PO 04/22/19 Discontinued Reported Medications Hydrocodone Bit/Acetaminophen (HYDROCODON-ACETAMINOPHEN 5-325) 1 Each Tablet, 1 EACH PO Q6H, TAB 02/24/19 Alprazolam (XANAX) 0.5 Mg Tablet, 0.5 TAB PO QD PRN, TAB 02/24/19 Zolpidem Tartrate (AMBIEN) 5 Mg Tablet, 1 TAB PO QHS, TAB 2/8/19 Escitalopram Oxalate (LEXAPRO) 20 Mg Tablet, 10 MG PO QDAY, TAB 11/25/18 Past Medical/Surgical History The patient has a past medical and surgical history of pneumonia, GERD, Lasix ice surgery. Depression, alcohol abuse. Reviewed Nurses Notes: Yes Hx Smoking: No Hx Substance Use Disorder: No Hx Alcohol Use: Yes Constitutional Vital Sign - Last 24 Hours 04/22/19 11:50 Temp 98.4 Pulse 53 Resp 20 B/P (MAP) 146/95 Pulse Ox 94 O2 Delivery Room Air Physical Exam General Appearance: The patient is alert, has no immediate need for airway protection and no signs of toxicity. Eyes: Pupils equal and round no pallor or injection. ENT, Mouth: Mucous membranes are moist. Respiratory: There are no retractions, lungs are clear to auscultation. Cardiovascular: Regular rate and rhythm. No murmurs, clicks or rubs. Gastrointestinal: Abdomen is soft and non tender, no masses, bowel sounds mami l. Neurological: Alert and oriented 4. Moving all cavities. Following. No focal neuro deficits per Skin: Warm and dry, no rashes. Musculoskeletal: Neck is supple non tender. Extremities are nontender, nonswollen and have full range of motion. Psychological: Eyes closed while we are talking, very flat affect, soft spoken, not aggressive, is compliant and willing to answer questions when asked however is not forthcoming with a significant amount of detailed information. DIFFERENTIAL DIAGNOSIS: After history and physical exam differential diagnosis was considered for depression, suicidal ideation, alcohol addiction. Medical Decision Making Data Points Result Diagram: 04/22/19 1220 04/22/19 1220 Laboratory Hematology Test 04/22/19 11:48 04/22/19 12:20 Urine Color Yellow Urine Clarity Slightly-cloudy Urine pH 5.0 pH (4.8-9.5) Urine Specific [place] 1.026 Urine Protein 30 mg/dL (NEGATIVE) Urine Glucose (UA) Negative mg/dL (NEGATIVE) Urine Ketones Trace mg/dL (NEGATIVE) Urine Blood Negative (NEGATIVE) Urine Nitrite Negative (NEGATIVE) Urine Bilirubin Negative (NEGATIVE) Urine Urobilinogen Negative mg/dL (0.2-1.9) Urine Leukocyte Esterase Negative (NEGATIVE) Urine RBC 1 /HPF (0-2/HPF) Urine WBC 2 /HPF (0-5/HPF) Urine Squamous Epithelial Cells Few /LPF (</=FEW) Urine Bacteria Negative /HPF (NONE-FEW) Urine Mucus Few /HPF (NONE-FEW) Urine Opiates Screen Negative Urine Barbiturates Screen Negative Ur Tricyclic Antidepressants Screen Negative Urine Phencyclidine Screen Negative Urine Amphetamines Screen Negative Urine Benzodiazepines Screen Negative Urine Cocaine Screen Negative Urine Cannabinoids Screen Negative Red Blood Count 4.05 M/uL (4.00-5.60) Mean Corpuscular Volume 95.2 fL (80.0-96.0) Mean Corpuscular Hemoglobin 33.2 pg (26.0-33.0) Mean Corpuscular Hemoglobin Concent 34.9 g/dL (32.0-36.0) Red Cell Distribution Width 12.8 % (11.5-14.5) Mean Platelet Volume 6.4 fL (7.2-11.1) Neutrophils (%) (Auto) 87.2 % (39.4-72.5) Lymphocytes (%) (Auto) 6.0 % (17.6-49.6) Monocytes (%) (Auto) 6.6 % (4.1-12.4) Eosinophils (%) (Auto) 0.0 % (0.4-6.7) Basophils (%) (Auto) 0.2 % (0.3-1.4) Nucleated RBC Relative Count (auto) 0.0 /100WBC Neutrophils # (Auto) 4.4 K/uL (2.0-7.4) Lymphocytes # (Auto) 0.3 K/uL (1.3-3.6) Monocytes # (Auto) 0.3 K/uL (0.3-1.0) Eosinophils # (Auto) 0.0 K/uL (0.0-0.5) Basophils # (Auto) 0.0 K/uL (0.0-0.1) Nucleated RBC Absolute Count (auto) 0.00 K/uL Sodium Level 137 mmol/L (137-145) Potassium Level 3.2 mmol/L (3.5-5.0) Chloride Level 99 mmol/L (98-107) Carbon Dioxide Level 28 mmol/L (22-30) Blood Urea Nitrogen 13 mg/dl (9-21) Creatinine 0.50 mg/dl (0.66-1.25) Glomerular Filtration Rate Calc > 60.0 Random Glucose 117 mg/dl (75-110) Calcium Level 8.9 mg/dl (8.4-10.2) Magnesium Level 1.9 mg/dl (1.7-2.2) Total Bilirubin 1.9 mg/dl (0.2-1.3) Aspartate Amino Transf (AST/SGOT) 50 U/L (0-35) Alanine Aminotransferase (ALT/SGPT) 52 U/L (0-56) Alkaline Phosphatase 72 U/L (0-126) Total Protein 7.6 g/dl (6.3-8.2) Albumin 4.1 g/dl (3.5-5.0) Thyroid Stimulating Hormone (TSH) 2.21 uIU/ml (0.46-4.68) Salicylates Level < 10 mg/L Salicylate Last Dose Date unk Acetaminophen Level < 10 ug/ml Serum Alcohol < 10 mg/dl Chemistry Test 04/22/19 11:48 04/22/19 12:20 Urine Color Yellow Urine Clarity Slightly-cloudy Urine pH 5.0 pH (4.8-9.5) Urine Specific [place] 1.026 Urine Protein 30 mg/dL (NEGATIVE) Urine Glucose (UA) Negative mg/dL (NEGATIVE) Urine Ketones Trace mg/dL (NEGATIVE) Urine Blood Negative (NEGATIVE) Urine Nitrite Negative (NEGATIVE) Urine Bilirubin Negative (NEGATIVE) Urine Urobilinogen Negative mg/dL (0.2-1.9) Urine Leukocyte Esterase Negative (NEGATIVE) Urine RBC 1 /HPF (0-2/HPF) Urine WBC 2 /HPF (0-5/HPF) Urine Squamous Epithelial Cells Few /LPF (</=FEW) Urine Bacteria Negative /HPF (NONE-FEW) Urine Mucus Few /HPF (NONE-FEW) Urine Opiates Screen Negative Urine Barbiturates Screen Negative Ur Tricyclic Antidepressants Screen Negative Urine Phencyclidine Screen Negative Urine Amphetamines Screen Negative Urine Benzodiazepines Screen Negative Urine Cocaine Screen Negative Urine Cannabinoids Screen Negative White Blood Count 5.0 k/uL (4.5-11.0) Red Blood Count 4.05 M/uL (4.00-5.60) Hemoglobin 13.4 g/dL (14.0-18.0) Hematocrit 38.5 % (42.0-52.0) Mean Corpuscular Volume 95.2 fL (80.0-96.0) Mean Corpuscular Hemoglobin 33.2 pg (26.0-33.0) Mean Corpuscular Hemoglobin Concent 34.9 g/dL (32.0-36.0) Red Cell Distribution Width 12.8 % (11.5-14.5) Platelet Count 160 K/uL (150-450) Mean Platelet Volume 6.4 fL (7.2-11.1) Neutrophils (%) (Auto) 87.2 % (39.4-72.5) Lymphocytes (%) (Auto) 6.0 % (17.6-49.6) Monocytes (%) (Auto) 6.6 % (4.1-12.4) Eosinophils (%) (Auto) 0.0 % (0.4-6.7) Basophils (%) (Auto) 0.2 % (0.3-1.4) Nucleated RBC Relative Count (auto) 0.0 /100WBC Neutrophils # (Auto) 4.4 K/uL (2.0-7.4) Lymphocytes # (Auto) 0.3 K/uL (1.3-3.6) Monocytes # (Auto) 0.3 K/uL (0.3-1.0) Eosinophils # (Auto) 0.0 K/uL (0.0-0.5) Basophils # (Auto) 0.0 K/uL (0.0-0.1) Nucleated RBC Absolute Count (auto) 0.00 K/uL Glomerular Filtration Rate Calc > 60.0 Calcium Level 8.9 mg/dl (8.4-10.2) Magnesium Level 1.9 mg/dl (1.7-2.2) Total Bilirubin 1.9 mg/dl (0.2-1.3) Aspartate Amino Transf (AST/SGOT) 50 U/L (0-35) Alanine Aminotransferase (ALT/SGPT) 52 U/L (0-56) Alkaline Phosphatase 72 U/L (0-126) Total Protein 7.6 g/dl (6.3-8.2) Albumin 4.1 g/dl (3.5-5.0) Thyroid Stimulating Hormone (TSH) 2.21 uIU/ml (0.46-4.68) Salicylates Level < 10 mg/L Salicylate Last Dose Date unk Acetaminophen Level < 10 ug/ml Serum Alcohol < 10 mg/dl Toxicology Test 04/22/19 11:48 04/22/19 12:20 Urine Opiates Screen Negative Urine Barbiturates Screen Negative Ur Tricyclic Antidepressants Screen Negative Urine Phencyclidine Screen Negative Urine Amphetamines Screen Negative Urine Benzodiazepines Screen Negative Urine Cocaine Screen Negative Urine Cannabinoids Screen Negative Salicylates Level < 10 mg/L Salicylate Last Dose Date unk Acetaminophen Level < 10 ug/ml Serum Alcohol < 10 mg/dl Urinalysis Test 04/22/19 11:48 Urine Color Yellow Urine Clarity Slightly-cloudy Urine pH 5.0 pH (4.8-9.5) Urine Specific [place] 1.026 Urine Protein 30 mg/dL (NEGATIVE) Urine Glucose (UA) Negative mg/dL (NEGATIVE) Urine Ketones Trace mg/dL (NEGATIVE) Urine Blood Negative (NEGATIVE) Urine Nitrite Negative (NEGATIVE) Urine Bilirubin Negative (NEGATIVE) Urine Urobilinogen Negative mg/dL (0.2-1.9) Urine Leukocyte Esterase Negative (NEGATIVE) Urine RBC 1 /HPF (0-2/HPF) Urine WBC 2 /HPF (0-5/HPF) Urine Squamous Epithelial Cells Few /LPF (</=FEW) Urine Bacteria Negative /HPF (NONE-FEW) Urine Mucus Few /HPF (NONE-FEW) ED Course/Re-evaluation Clinical Indication for ER IV: Hydration, IV Access ED Course The patient was admitted to room. A history and physical obtained. Differential diagnoses were considered. CBC, CMP, psych panel obtained, a 1 L banana bag was given. No Ativan given while in the emergency department. 4 mg IV Zofran. Laboratory studies showing H&H 13.4 and 38.5, MCV 95, chemistries showing potassium 3.2, AST 50, negative UA, negative urine, negative tox screen. I did speak with Dr. Garcia the psychiatrist on-call, he's accepted the patient in the behavioral health unit. Patient remained cooperative while in the emergency department. 04/22/2019 1:18:42 pm I did speak with Dr Gerber, the cultures application development liaison, he's accepted the patient in the [facility] unit for alcohol withdrawal and detox. Decision to Disposition Date: Apr 22, 2019 Decision to Disposition Time: 13:18 Depart Departure Latest Vital Signs Vital Signs Date Time Temp Pulse Resp B/P (MAP) Pulse Ox O2 Delivery O2 Flow Rate FiO2 04/22/19 11:50 98.4 53 20 146/95 94 Room Air Impression: Primary Impression: Depression Additional Impression: Alcohol withdrawal Condition: Improved Disposition: XFER TO [facility] Referrals: TOSHA BRITT (PCP) Problem Qualifiers Primary Impression: Depression Depression Type: unspecified Qualified Codes: F32.9 - Major depressive disorder, single episode, unspecified Additional Impression: Alcohol withdrawal Complication of substance-induced condition: uncomplicated Qualified Codes: F10.230 - Alcohol dependence with withdrawal, uncomplicated DANA CLAROSP- Apr 22, 2019 11:49
[2019-04-22 11:50] VITALS: BP 146/95
[2019-04-22] MEDS ORDERED: NALT50TA15 PO (11:58)
[2019-04-22] MEDS ORDERED: THIAMINE HCL(*) 200 MG/2 ML IN 100 MG, FOLIC ACID(*) 50 MG/10 ML INJ 1 MG, MULTIVITAMIN... IV ONE (12:08)
[2019-04-22] MEDS ORDERED: ONDANSETRON 4 MG/2 ML VIAL IVP ONE (12:10)
[2019-04-22] MEDS ORDERED: PANTOPRAZOLE SOD 40 MG IV VIAL IVP ONE (12:10)
[2019-04-22] MEDS ORDERED: LORazepam 2 MG/ML VIAL IVP ONE (12:10)
[2019-04-22 12:30] LABS: PLATELET COUNT, AUTOMATED 160 K/uL (150-450)
[2019-04-22] MEDS ORDERED: VENL75CA58 PO (16:03)
== END 2019-04-22 14:12 ==
LOC: ER 11:59
DX: F32.9 Major depressive disorder, single episode, unspecified (principal); F10.230 Alcohol dependence with withdrawal, uncomplicated
CPT/HCPCS: 80305; 80320; 80329; 81001; 83735; 84443; 85025; 96365; 96375; 99284; C9113; J2405; J3411; J3475; J7030; 82040; 82247; 82310; 82374; 82435; 82565; 82947; 84075; 84132; 84155; 84295; 84450; 84460; 84520

== ENCOUNTER 2019-04-22 13:21 | Inpatient (IN) | payer BC ==
[~2019-04-22] VITALS: Ht 170.2 cm; Wt 74.4 kg
[~2019-04-22 13:21] MED LIST changes: +NALT50TA15 PO
[2019-04-22 14:40] VITALS: BP 138/70
[2019-04-22] MEDS ORDERED: DIAZEPAM 10 MG TAB PO ONE (15:40)
[2019-04-22] MEDS ORDERED: DIAZEPAM 10 MG TAB PO PRN (15:45)
[2019-04-22] MEDS ORDERED: LOPERAMIDE HCL 2 MG CAP PO PRN (15:50)
[2019-04-22] MEDS ORDERED: MAG HYD/AL HYD/SIMETH 30ML UDC PO PRN (15:50)
[2019-04-22] MEDS ORDERED: VENL75CA58 PO (16:03)
[2019-04-22 18:00] VITALS: BP 126/84
[2019-04-22] MEDS: DIAZEPAM 10 MG TAB PO PRN (20:28)
[2019-04-23 03:00] VITALS: BP 132/73
[2019-04-23 07:50] VITALS: BP 120/78
[2019-04-23] MEDS: FOLIC ACID 1 MG TAB PO SCH (08:40)
[2019-04-23] MEDS: VENLAFAXINE XR 75 MG CAPCR PO SCH (08:40)
[2019-04-23] MEDS: PANTOPRAZOLE SOD 40 MG TABEC PO SCH (08:40)
[2019-04-23] MEDS: THIAMINE HCL 100 MG TAB PO SCH (08:40)
[2019-04-23] MEDS: MULTIVITAMINS PO SCH (08:40)
[2019-04-23] MEDS: DIAZEPAM 10 MG TAB PO PRN (11:26)
[2019-04-23 11:45] VITALS: BP 108/70
[2019-04-23 20:24] VITALS: BP 118/80
[2019-04-23] MEDS ORDERED: traZODone HCL 50 MG TAB PO PRN (20:40)
[2019-04-24 04:54] VITALS: BP 120/82
[2019-04-24] MEDS: THIAMINE HCL 100 MG TAB PO SCH (08:45)
[2019-04-24] MEDS: MULTIVITAMINS PO SCH (08:45)
[2019-04-24] MEDS: VENLAFAXINE XR 75 MG CAPCR PO SCH (08:45)
[2019-04-24] MEDS: PANTOPRAZOLE SOD 40 MG TABEC PO SCH (08:45)
[2019-04-24] MEDS: FOLIC ACID 1 MG TAB PO SCH (08:45)
[2019-04-24] MEDS: DIAZEPAM 10 MG TAB PO PRN ×2 (08:54→20:53)
--- NOTE | 2019-04-24 09:25 | SCHAAF H&P ---
DATE OF ADMISSION: April 22, 2019 ATTENDING PHYSICIAN Jairo Garcia MD Patient was seen in the a.m. of April 23, 2019, at approximately 1100 hours for note concerning this dictation. PRESENTING PROBLEM/CHIEF COMPLAINT Alcohol withdrawal and some depressive symptoms. HISTORY OF PRESENT ILLNESS This is a pleasant 58-year-old male who was admitted on a voluntary basis for help with alcohol withdrawal. Patient also suffering from some likely underlying psychological stressors as well. Patient reports much followup for mental health related issues through various therapists using various modalities. Again, at this time, it was discussed with patient that patient's focus of treatment would be to treat alcohol withdrawal to completion and shore up any discharge plans for return back into the community in an effort to stay sober and continue followup. Patient himself unable to elicit any significant psychiatric symptoms other than ongoing battles with alcohol use disorder. Patient reports he had been sober for quite some time but after a recent break- up with a female significant other patient reported he had started resuming his alcohol use. 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 Patient reports, though, that these are now mostly resolved and patient will resume his teaching duties in the fall. MENTAL HEALTH HISTORY Patient has notably been a patient here on Behavioral Health for similar circumstances in April 2011. Patient currently is following up with Yoli Owens as an outpatient provider. He has been to AA in the past and, again, sees various therapists of wide-ranging modalities at times in the outpatient community. Patient has never had a suicide attempt. FAMILY PSYCHIATRIC HISTORY The patient reports alcoholism on the father's side. His older brother suffers from alcoholism. His sister may have been heavy into drug use. There are no reported suicides in the family. PAST MEDICAL HISTORY Significant for ongoing dental issues with root canals. Patient also notably recently in the ER as of one week ago for yet unable to fully determine hypoxic condition. Patient noted to have some abnormalities on pulmonary CT scan as well and will need continued followup. Patient was placed on a dose of tapering prednisone at that time and Proventil inhaler, which patient does not feel he needs. Patient has had longstanding issues with anemia as well. SOCIAL HISTORY Patient was born in [place] and raised there. Parents were at the time of his . His father passed in 2005. He has two older brothers. Patient is a high school graduate. 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 Patient reports at times this work is difficult for him as he does tend to work with emotionally disturbed children. Patient has been and twice. He considers himself a "polyamorist" . Patient has no children. He says current relationship with significant other he considers "on hold" at this time. He reports a "number of relationships that did not work out". LEGAL HISTORY Negative. SUBSTANCE ABUSE HISTORY Patient reports using heroin in the distant past and cannabis in the distant past as well. Patient continues to have battles with alcoholism with long periods of sobriety. PHYSICAL EXAMINATION Please see emergency room note. Notable for 58-year old male in no acute medical distress, voluntarily presenting for help with alcohol withdrawal. Vital signs at the time of admission: Temperature 98.4, pulse 53, respiratory rate 20, blood pressure 146/95 and pulse oximetry 94% on room air. LABORATORY DATA CBC notable for hemoglobin low at 13.4, hematocrit low at 38.5. RBCs within low normal range of 4.05. Platelet count low normal at 160. MCH elevated at 33.2. Chemistry panel notable for potassium low at 3.2, magnesium within normal range at 1.9, total bilirubin elevated at 1.9 with an elevated AST of 50. TSH 2.21. Urinalysis notable for trace ketones and protein present. Toxicology screen negative with a nondetectable serum alcohol level at time of admission. MENTAL STATUS EXAMINATION GENERAL APPEARANCE, BEHAVIOR AND ATTITUDE: This is a cooperative pleasant 58- year old male, interacting well with this provider and other treatment team staff. Patient currently under treatment with diazepam via [facility] protocol. No gross psychomotor agitation or retardation was noted. No periods of tearfulness. Patient seemingly eager to recount life events to this provider and other staff members. SPEECH: Within normal limits. Regular rate, rhythm, volume and tone. MOOD: Described as improving. Some mild depression symptoms potentially related to, of course, battles with alcoholism but also recent prednisone treatment. AFFECT: Full and mood-congruent overall. THOUGHT PROCESSES: Goal-directed and logical. No loose associations or flight of ideas. THOUGHT CONTENT: Free of auditory or visual hallucinations, ideas of reference, thought broadcastings, delusions, obsessions or compulsions. Patient adamantly denying suicidal or homicidal ideations. SENSORIUM: Clear. COGNITION: Alert and oriented to person, place, time and situation. MEMORY: Immediate, recent and remote estimated intact. INTELLIGENCE: Average, based on interview. INSIGHT AND JUDGMENT: Considered grossly intact. Patient presenting voluntarily for help with alcohol withdrawal. ASSESSMENT This is a pleasant 58-year-old single male who presents for help with alcohol withdrawal. Patient having some other medical stressors concerning pulmonary function, which are likely not fully known etiology. Patient also having some psychosocial stressors in nature and these will be addressed further once alcohol withdrawal is complete. At this time, we will treat alcohol withdrawal to completion via [place] protocol with diazepam. DIAGNOSES 1. Alcohol withdrawal. 2. Alcohol use disorder, severe. 3. Medical and psychosocial stressors. PLAN 1. Admit to the Unit. 2. Necessary precautions will be implemented. 3. The patient will participate in individual and group therapy. 4. Medications will be administered and titrated accordingly. 5. Collateral information to be obtained as necessary. 6. Estimated length of stay three to five days. MTDD
[2019-04-24 10:04] VITALS: BP 128/82
--- NOTE | 2019-04-24 13:42 | BHS Progress Note ---
[facility] - Subjective Progress Notes Subjective Patient interacting well, alcohol withdrawal ongoing but nearing completion, patient denies any other concerns today. Will continue treatment, and plan for discharge possibly tomorrow. No other concerns. Suicidal Ideation: None Homicidal Ideation: None [facility] - Objective Physical Exam Vital Signs Vital Signs Date Time Temp Pulse Resp B/P (MAP) Pulse Ox O2 Delivery O2 Flow Rate FiO2 04/24/19 10:04 99.8 89 128/82 (97) 91 Room Air 04/23/19 11:45 18 04/23/19 07:50 1.0 Muscle Strength and Tone: WNL Gait and Station: Steady [facility] Medications Reviewed: Side Effects, Benefits of Medication, Risks Allergies Reviewed: Yes Mental Status Exam General Appearance: Casual, Well Groomed, Good Eye Contact, Cooperative, Polite, Good Interaction; No Psychomotor Agitation, No Psychomotor Retardation, No Bizarre Mannerisms, No Tics Speech: Clear, Spontaneous, Normal Rate, Normal Rhythm, Normal Volume, Normal Tone Mood: Euthymic Affect: Full and Appropriate, Calm; No Tearful, No Anxious, No Agitated Thought Process: Organized, Logical, Goal Directed; No Loose Associations, No Flight of Ideas Thought Content: No Suicidal Ideation, No Homicidal Ideation, No Delusions, No Auditory Halllucinations, No Visual Hallucinations, No Thought Broadcasting, No Ideas of Reference, No Obsessions, No Compulsions Sensorium: Clear Cognition: Alert & Oriented-Person, Alert & Oriented-Place, Alert & Oriented- Time, Wadur-[id number]-[id number] Memory: Immediate, Recent, Remote Intelligence: Average Insight Judgment: Fair (improving in absence of alcohol) [facility] Assessment and Plan [id number] Encounter Date: Apr 24, 2019 [id number] Encounter Time: 13:00 [facility] Plan: Necessary Precautions, Individual/Group Therapy, Admin/Titrate Meds, Educate Patient Tobacco Medications: Not Appropriate Condition Multpiple Antipsychotics Used: No Problems: (1) Alcohol use disorder, moderate, in controlled environment Status: Chronic (2) Alcohol withdrawal Status: Acute Condition 1. continue treatment. 2. solidify outpatient plans 3. schedule sleep study Problem Qualifiers (1) Alcohol withdrawal: Complication of substance-induced condition: uncomplicated Qualified Codes: F10.230 - Alcohol dependence with withdrawal, uncomplicated JAKE BURT MD Apr 24, 2019 13:42
[2019-04-24 14:30] VITALS: BP 126/80
[2019-04-24 18:43] VITALS: BP 138/92
[2019-04-25 06:28] VITALS: BP 127/85
[2019-04-25] MEDS: THIAMINE HCL 100 MG TAB PO SCH (08:01)
[2019-04-25] MEDS: VENLAFAXINE XR 75 MG CAPCR PO SCH (08:01)
[2019-04-25] MEDS: FOLIC ACID 1 MG TAB PO SCH (08:01)
[2019-04-25] MEDS: MULTIVITAMINS PO SCH (08:01)
[2019-04-25] MEDS: PANTOPRAZOLE SOD 40 MG TABEC PO SCH (08:01)
--- NOTE | 2019-04-25 09:24 | BHS Progress Note ---
BHS - Subjective Progress Notes Subjective "I'm doing fine. I have some reservations about leaving the spa." Denies depression, anxiety or anger Mood euthymic. Reports sleep as sufficient Solid discharge plans including medication management, IOP, AA and individual therapy Suicidal Ideation: None Homicidal Ideation: None BHS - Objective Physical Exam Muscle Strength and Tone: WNL Gait and Station: Steady S Medications Reviewed: Side Effects, Benefits of Medication, Risks Allergies Reviewed: Yes Mental Status Exam General Appearance: Casual, Well Groomed, Good Eye Contact, Cooperative, Polite, Good Interaction; No Psychomotor Agitation, No Psychomotor Retardation, No Bizarre Mannerisms, No Tics Speech: Clear, Spontaneous, Normal Rate, Normal Rhythm, Normal Volume, Normal Tone Mood: Euthymic Affect: Full and Appropriate, Calm; No Tearful, No Anxious, No Agitated Thought Process: Organized, Logical, Goal Directed; No Loose Associations, No Flight of Ideas Thought Content: No Suicidal Ideation, No Homicidal Ideation, No Delusions, No Auditory Halllucinations, No Visual Hallucinations, No Thought Broadcasting, No Ideas of Reference, No Obsessions, No Compulsions Sensorium: Clear Cognition: Alert & Oriented-Person, Alert & Oriented-Place, Alert & Oriented-Time, Mtdma-[id number]-Fguhigcnv Memory: Immediate, Recent, Remote Intelligence: Average Insight Judgment: Fair (improving in absence of alcohol) Lab Laboratory Tests Test 04/22/19 11:48 04/22/19 12:20 Range/Units Urine Color Yellow Urine Clarity Slightly-cloudy Urine pH 5.0 4.8-9.5 pH Urine Specific [place] 1.026 Urine Protein 30 NEGATIVE mg/dL Urine Glucose (UA) Negative NEGATIVE mg/dL Urine Ketones Trace NEGATIVE mg/dL Urine Blood Negative NEGATIVE Urine Nitrite Negative NEGATIVE Urine Bilirubin Negative NEGATIVE Urine Urobilinogen Negative 0.2-1.9 mg/dL Urine Leukocyte Esterase Negative NEGATIVE Urine RBC 1 0-2/HPF /HPF Urine WBC 2 0-5/HPF /HPF Urine Squamous Epithelial Cells Few </=FEW /LPF Urine Bacteria Negative NONE-FEW /HPF Urine Mucus Few NONE-FEW /HPF Urine Opiates Screen Negative Urine Barbiturates Screen Negative Ur Tricyclic Antidepressants Screen Negative Urine Phencyclidine Screen Negative Urine Amphetamines Screen Negative Urine Benzodiazepines Screen Negative Urine Cocaine Screen Negative Urine Cannabinoids Screen Negative White Blood Count 5.0 4.5-11.0 k/uL Red Blood Count 4.05 4.00-5.60 M/uL Hemoglobin 13.4 14.0-18.0 g/dL Hematocrit 38.5 42.0-52.0 % Mean Corpuscular Volume 95.2 80.0-96.0 fL Mean Corpuscular Hemoglobin 33.2 26.0-33.0 pg Mean Corpuscular Hemoglobin Concent 34.9 32.0-36.0 g/dL Red Cell Distribution Width 12.8 11.5-14.5 % Platelet Count 160 150-450 K/uL Mean Platelet Volume 6.4 7.2-11.1 fL Neutrophils (%) (Auto) 87.2 39.4-72.5 % Lymphocytes (%) (Auto) 6.0 17.6-49.6 % Monocytes (%) (Auto) 6.6 4.1-12.4 % Eosinophils (%) (Auto) 0.0 0.4-6.7 % Basophils (%) (Auto) 0.2 0.3-1.4 % Nucleated RBC Relative Count (auto) 0.0 /100WBC Neutrophils # (Auto) 4.4 2.0-7.4 K/uL Lymphocytes # (Auto) 0.3 1.3-3.6 K/uL Monocytes # (Auto) 0.3 0.3-1.0 K/uL Eosinophils # (Auto) 0.0 0.0-0.5 K/uL Basophils # (Auto) 0.0 0.0-0.1 K/uL Nucleated RBC Absolute Count (auto) 0.00 K/uL Sodium Level 137 137-145 mmol/L Potassium Level 3.2 3.5-5.0 mmol/L Chloride Level 99 98-107 mmol/L Carbon Dioxide Level 28 22-30 mmol/L Blood Urea Nitrogen 13 9-21 mg/dl Creatinine 0.50 0.66-1.25 mg/dl Glomerular Filtration Rate Calc > 60.0 Random Glucose 117 75-110 mg/dl Calcium Level 8.9 8.4-10.2 mg/dl Magnesium Level 1.9 1.7-2.2 mg/dl Total Bilirubin 1.9 0.2-1.3 mg/dl Aspartate Amino Transf (AST/SGOT) 50 0-35 U/L Alanine Aminotransferase (ALT/SGPT) 52 0-56 U/L Alkaline Phosphatase 72 0-126 U/L Total Protein 7.6 6.3-8.2 g/dl Albumin 4.1 3.5-5.0 g/dl Thyroid Stimulating Hormone (TSH) 2.21 0.46-4.68 uIU/ml Salicylates Level < 10 mg/L Salicylate Last Dose Date unk Acetaminophen Level < 10 ug/ml Serum Alcohol < 10 mg/dl Additional Findings/Notes: Medications (Trade) Dose Ordered Sig/Ildefonso Route PRN Reason Start Time Stop Time Status Last Admin Dose Admin Al Hydrox/Mg Hydrox/Simethicone (Maalox(*) 30 ml Udcup (Or Equiv)) 30 ml Q4H PRN PO DYSPEPSIA 04/22/19 15:50 05/22/19 15:49 04/22/19 18:58 Diazepam (Valium(*) 10 Mg Tab (Or Equiv)) 10-20 MG PRN PRN PO FOLLOW CIWA PROTOCOL 04/22/19 15:50 05/06/19 15:49 04/24/19 20:53 Folic Acid (Folic Acid (*) 1 Mg Tab) 1 mg QDAY PO 04/23/19 09:00 05/23/19 08:59 04/25/19 08:01 Multivitamins (Thera-M Enhanced Tab (Or Equiv)) 1 each QDAY PO 04/23/19 09:00 05/23/19 08:59 04/25/19 08:01 Pantoprazole Sodium (Protonix (*) (Or Equiv)) 40 mg QDAY PO 04/23/19 09:00 05/23/19 08:59 04/25/19 08:01 Thiamine HCl (Vitamin B-1(*) 100 Mg Tab (Or Equiv)) 100 mg QDAY PO 04/23/19 09:00 05/23/19 08:59 04/25/19 08:01 Trazodone HCl (Desyrel 50 Mg Tab (Or Equiv)) 50 mg QHS PRN PO INSOMNIA 04/23/19 20:40 05/23/19 20:39 04/23/19 21:55 Venlafaxine HCl (Effexor-Xr 75 Mg Capcr (Or Equiv)) 75 mg QDAY PO 04/23/19 09:00 05/23/19 08:59 04/25/19 08:01 [facility] Assessment and Plan [id number] Encounter Date: Apr 25, 2019 [id number] Encounter Time: 09:33 [facility] Plan: Necessary Precautions, Individual/Group Therapy, Admin/Titrate Meds, Educate Patient Tobacco Medications: Not Appropriate Condition Multpiple Antipsychotics Used: No Problems: (1) Alcohol use disorder, moderate, in controlled environment Status: Chronic (2) Alcohol withdrawal Status: Resolved (3) COPD (chronic obstructive pulmonary disease) Status: Acute Condition Continue current medications Discharge today Follow up w/individual therapist, IOP, AA and medication management See discharge dictation for full report Encourage to abstain from etoh/illicit substances Problem Qualifiers (1) Alcohol withdrawal: Complication of substance-induced condition: uncomplicated Qualified Codes: F10.230 - Alcohol dependence with withdrawal, uncomplicated JACKIE HERNANDEZ NP Apr 25, 2019 09:24
[2019-04-25] MEDS ORDERED: PANT40TA65 PO (09:29)
[2019-04-25] MEDS ORDERED: FOLI-68 PO (09:29)
[2019-04-25] MEDS ORDERED: MULT-859 PO (09:29)
[2019-04-25] MEDS ORDERED: TRAZ50TA52 PO (09:30)
[2019-04-25] MEDS ORDERED: THIA100T20 PO (09:30)
[2019-04-25 09:50] VITALS: BP 108/72
--- NOTE | 2019-04-25 19:22 | DISCHARGE SUMMARY ---
DATE OF ADMISSION: April 22, 2019 DATE OF DISCHARGE: April 25, 2019 ATTENDING PROVIDER BINDU Dennison FINAL DIAGNOSES PER DIAGNOSTIC AND STATISTICAL MANUAL OF MENTAL DISORDERS, FIFTH EDITION 1. Alcohol use disorder, severe. 2. Alcohol withdrawal, considered complete. REASON FOR ADMISSION/BRIEF HISTORY This patient is a 58-year-old male who presented to the Emergency Room for alcohol withdrawal and detox. He reported that he had been sober for approximately eight years, then in July when he broke up with his significant other, he began drinking again. He typically drinks seven to eight vodka drinks per day. His last drink was approximately two hours prior to arrival to the Emergency Room. He denies illicit drug use. He is requesting a voluntary admission for alcohol detox in the Behavioral Health Unit. He denied any other mental health symptoms, denied suicidal or homicidal ideation. Patient was transferred to the Behavioral Health Unit for further evaluation and treatment and completed his alcohol withdrawal with use of Valium per [facility] protocol. PHYSICAL EXAMINATION Please see emergency room notes for physical exam. VITAL SIGNS: Vital signs at time of admission including temperature of 98.8, pulse of 62, blood pressure of 120/82, pulse oximetry 90% on room air. Vital signs at time of discharge include temperature of 98.8, pulse of 89, respiratory rate 16, blood pressure 108/72, pulse oximetry 94% on room air. LABORATORY DATA CBC within normal limits with the exception of hemoglobin low, 13.4, hematocrit low, 38.5, MCH high, 33.2. Chemistry panel with low potassium of 3.2, creatinine low at 0.5, total bilirubin elevated at 1.9, AST elevated at 50, random glucose 117. Urine screen within normal limits. Urine toxicology includes salicylates, acetaminophen, and serum alcohol levels less than 10. Urine screen negative for opiates, barbiturates, tricyclics, phencyclidine, amphetamines, benzodiazepines, cocaine, and cannabinoids. MENTAL STATUS EXAMINATION GENERAL APPEARANCE, BEHAVIOR, AND ATTITUDE: Patient is calm, cooperative, interactive at time of discharge interview. No bizarre mannerisms or tics. No psychomotor agitation or retardation. No periods of tearfulness. SPEECH: Regular rate, rhythm, volume, tone. MOOD: Euthymic. AFFECT: Minimally constricted, mood congruent. THOUGHT PROCESSES: Logical, goal directed. No loose associations or flight of ideas. THOUGHT CONTENT: Free of auditory or visual hallucinations, ideas of reference, thought broadcasting, delusions, obsessions, compulsions. Patient denies suicidal or homicidal ideation. SENSORIUM: Clear. COGNITION: Alert and oriented to person, place, time, and situation. MEMORY: Immediate, recent, and remote intact. INTELLIGENCE: Average based on interview. INSIGHT AND JUDGMENT: Considered good in the absence of alcohol. TREATMENT Patient again was treated with alcohol withdrawal per [facility] protocol with Valium according scores. His alcohol withdrawal was considered complete at the time of discharge. He is agreeable to ongoing individual therapy including intensive outpatient program, individual medication management, and has appointments set up prior to discharge. Please refer to social work notes for specifics of outpatient appointments and times. These have been established prior to discharge. HOSPITAL COURSE Patient was calm and cooperative throughout his stay. No behavioral outbursts. No alcohol withdrawal-related seizures. He was agreeable to ongoing intensive outpatient program and medication management to assist with his sobriety. CONDITION OF PATIENT ON DISCHARGE He is stable and considered a minimal risk to himself or others. DISPOSITION Patient is discharged to home. He is to take medications only as prescribed. DISCHARGE MEDICATIONS 1. Albuterol sulfate two puffs inhaler every four to six hours as needed for difficulty breathing. 2. Folic acid 1 mg p.o. daily. 3. Multivitamin one p.o. daily. 4. Protonix 40 mg one p.o. daily. 5. Thiamine 100 mg p.o. daily. 6. Trazodone 50 mg at bedtime at needed for insomnia. 7. Venlafaxine HCl 75 mg one p.o. daily. DISCHARGE INSTRUCTIONS Patient is encouraged to abstain from alcohol and all illicit substances. He is given the crisis line number and encouraged use for worsening symptoms. He is to return to the Emergency Room for worsening symptoms or suicidal ideation. He is to follow up with his sleep study as scheduled May 11, 2019, at [facility]. He is encouraged to attend AA meetings, individual therapy with Harry Valente, as well as [facility] for medication management with Pauline Cruz. Patient is competent and agreeable with the above discharge plan and verbalizes understanding of the above. [facility] HEALTHStephanie
== END 2019-04-25 09:55 | disposition home or self-care (01) | DRG 897 ==
LOC: BHS 13:21
PROVIDERS: ADMIT Psychiatry & Neurology Psychiatry; ATTEND Psychiatry & Neurology Psychiatry
DX: F10.230 Alcohol dependence with withdrawal, uncomplicated (principal); J44.9 Chronic obstructive pulmonary disease, unspecified; Y90.0 Blood alcohol level of less than 20 mg/100 ml; Z81.1 Family history of alcohol abuse and dependence

== ENCOUNTER → 2019-05-13 | Outpatient (CLI) | payer BC ==
[~2019-05-13] MED LIST changes: +FOLI-68 PO; +PANT40TA65 PO; +THIA100T20 PO; +TRAZ50TA52 PO; +VENL75CA58 PO
== END ==
LOC: RESP 20:58
PROVIDERS: ATTEND Psychiatry & Neurology Psychiatry
DX: G47.33 Obstructive sleep apnea (adult) (pediatric) (principal); G47.61 Periodic limb movement disorder